=== PATIENT | female | born 1950 | race Caucasian/White ===

== ENCOUNTER 2023-04-25 05:39 | Observation (INO) ==
[2023-04-25] MEDS ORDERED: Lactated Ringers 1000 ml BAG 1,000 ML IV SCH ×2 (06:00→09:00)
[2023-04-25] MEDS ORDERED: Famotidine IV 10 MG/ML 2 ml VIAL (20 mg) IV ONE (06:00)
[2023-04-25] MEDS ORDERED: Buffered Lidocaine 1% SYRIN 1 ml INTRADERM ONE (06:00)
[2023-04-25 06:28] LABS: Rapid COVID-19 Molecular Undetected (Undetected)
[2023-04-25] MEDS ORDERED: Tranexamic Acid 1 GM/100ML BAG 2,000 MG/200 ML BAG IV ONE (06:58)
[2023-04-25] MEDS ORDERED: Famotidine IV 10 MG/ML 2 ml VIAL (20 mg) ONE (06:59)
[2023-04-25] MEDS ORDERED: ceFAZolin 2 GM in NS PREMIX 0 GM/0 ML BAG IVPB ONE (06:59)
[2023-04-25] MEDS ORDERED: ROPIVACAINE 5 MG/ML 30 ML BTL (0.5%) ONE ×3 (07:00→07:27)
[2023-04-25] MEDS ORDERED: ceFAZolin *3* GM in NS PREMIX 3 GM/100 ML BAG IV ONE (07:08)
[2023-04-25] MEDS ORDERED: Phenylephrine IV 10 MG/ML 1 ml VIAL ONE (07:09)
[2023-04-25] MEDS ORDERED: Lidocaine 2% PF 5 ML VIAL ONE (07:09)
[2023-04-25] MEDS ORDERED: fentaNYL 100 mcg/2 ml 50 MCG/ML VIAL ONE ×4 (07:09→11:08)
[2023-04-25] MEDS ORDERED: Propofol 10 MG/ML 20 ML BTL ONE (07:09)
[2023-04-25] MEDS ORDERED: Midazolam 2 mg/2 ml VIAL 1 mg/ml 2 ml VIAL (2 mg) ONE ×2 (07:10→07:11)
[2023-04-25] MEDS ORDERED: Magnesium Hydroxide LIQ 30 ML UDC PO PRN (08:11)
[2023-04-25] MEDS ORDERED: Morphine 2 MG/ML SYRINGE IV PRN (08:11)
[2023-04-25] MEDS ORDERED: Lactulose 30 ml UDC PO PRN (08:11)
[2023-04-25] MEDS ORDERED: Ondansetron 4 mg VIAL 2 MG/ML 2 ml VIAL ONE (08:28)
[2023-04-25] MEDS ORDERED: Dexamethasone IV 4 MG/ML VIAL 1 ml VIAL ONE (08:28)
[2023-04-25] MEDS ORDERED: Scopolamine 1 mg/72hr PATCH TRANSDERM PRN (08:30)
[2023-04-25] MEDS ORDERED: Naloxone 0.4 mg VIAL 0.4 mg/ml 1 ml VIAL IV PRN (08:33)
[2023-04-25] MEDS ORDERED: Ondansetron 4 mg VIAL 2 MG/ML 2 ml VIAL IV PRN (08:33)
[2023-04-25] MEDS ORDERED: Magnesium Hydroxide LIQ 30 ML UDC PO SCH (09:00)
[2023-04-25] MEDS ORDERED: Vitamin THERAPEUTIC TAB PO SCH (09:00)
[2023-04-25] MEDS: fentaNYL 100 mcg/2 ml 50 MCG/ML VIAL IV PRN ×6 (10:27→11:17)
[2023-04-25 15:19] VITALS: BP 135/57
[2023-04-25] MEDS ORDERED: ceFAZolin 1 GM ADVAN 1 GM in NS 0.9% 50 ML 50 ML IVPB SCH (16:00)
== END 2023-04-25 16:30 | disposition home or self-care (01) ==
LOC: INTOOBSV 05:39 → AA 05:39 → SSU 11:26
PROVIDERS: ADMIT Orthopaedic Surgery Adult Reconstructive Orthopaedic Surgery; ATTEND Orthopaedic Surgery Adult Reconstructive Orthopaedic Surgery